=== PATIENT | male | born 1985 | race Caucasian/White ===

== ENCOUNTER 2019-04-04 22:29 | Emergency (ER) | payer SELFPAY ==
[~2019-04-04] VITALS: Ht 167.6 cm; Wt 96.0 kg
[2019-04-05] MEDS ORDERED: KETOROLAC 30MG/ML VIAL IV STA (01:09)
[2019-04-05 01:54] LABS: BASOPHILS % 0.7 % (0.0-2.0); EOSINOPHILS % 0.4 % (0.0-5.0); HEMATOCRIT. 48.8 % (42.0-52.0); HEMOGLOBIN. 16.9 g/dL (14.0-18.0); LYMPHOCYTES % 15.1 % (20.0-50.0); MEAN CORPUSCULAR HEMOGLOBIN 31.5 pg (28.0-32.0); MEAN PLATELET VOLUME 10.8 fl (7.4-10.4); MONOCYTES % 9.2 % (2.0-8.0); NEUTROPHILS % 74.6 % (40.0-76.0); PLATELET 200 x1000/uL (130-400); RED BLOOD CELL COUNT 5.36 mill/uL (4.7-6.1); RED CELL DISTRIBUTION WIDTH 13.4 % (11.6-14.6)
[2019-04-05 02:04] LABS: CHLORIDE 105 mEq/L (98-107)
[2019-04-05] MEDS ORDERED: CLINDAMYCIN 600 MG in SODIUM CHLORIDE 0.9% 50 ML IV NR (02:30)
[2019-04-05 04:14] VITALS: BP 107/78
== END 2019-04-05 04:18 | disposition home or self-care (01) ==
LOC: ER 22:29
DX: K04.7 Periapical abscess without sinus (principal); F12.10 Cannabis abuse, uncomplicated
CPT/HCPCS: 36415; 70450; 70490; 80053; 83605; 84145; 85025; 87040; 99291; J1885; J3490